=== PATIENT | male | born 1945 | race Two or more races ===

== ENCOUNTER 2016-07-10 18:52 | Inpatient (IN) | payer OTHER ==
[~2016-07-10] VITALS: Ht 180.3 cm; Wt 70.1 kg
[2016-07-10 19:58] LABS: Basophils # (auto) 0 uL; Basophils % (auto) 0.4 % (0.0-2.0); Eosinophils # (auto) 0.1 uL; Eosinophils % (auto) 1.1 % (0.0-7.0); Hematocrit 40.2 % (41.0-53.0); Hemoglobin 13.5 g/dL (13.5-17.5); Lymphocytes # (auto) 2.2 uL; Lymphocytes % (auto) 22.8 % (10.0-50.0); Mean Corpuscular Hemoglobin 32.5 pg (28.0-32.0); Mean Corpuscular Hgb Conc. 33.7 g/dL (32.0-36.0); Mean Corpuscular Volume 96.6 fL (80.0-100.0); Mean Platelet Volume 9.6 fL (7.4-10.4); Monocytes # (auto) 0.5 uL; Monocytes % (auto) 5.7 % (0.0-12.0); Neutrophils # (auto) 6.6 uL; Platelet Count (auto) 186 10^3/uL (140-450); Red Cell Distribution Width 13.9 % (11.6-16.0); White Blood Cell 9.4 10^3/uL (4.4-10.8)
[2016-07-10 20:31] LABS: Albumin 3.4 g/dL (3.4-5.0); BUN/Creatinine Ratio 13.5; Bilirubin, Total 0.2 mg/dL (0.2-1.0); Calcium 7.9 mg/dL (8.5-10.1); Potassium 3.4 mmol/L (3.5-5.1)
[2016-07-10] MEDS ORDERED: BANANA BAG KIT 1 EA IV ONE (21:38)
[2016-07-10] MEDS ORDERED: TETANUS-DIPTH-ACEL PERTUSSIS 0.5ML SYRG IM ONE (21:45)
[2016-07-10] MEDS ORDERED: THIAMINE INJ 100 MG, MULTIPLE VITAMIN 10 ML, FOLIC ACID 1 MG, MAGNESIUM SULF SDV 50% 8 ... IV ONE ×5 (21:45)
[2016-07-10] MEDS ORDERED: IOHEXOL 300 MG/ML 100ML BOTTLE IJ ONE (22:50)
[2016-07-10] MEDS ORDERED: PANTOPRAZOLE SODIUM 40 MG/10 ML VIAL IV ONE (23:30)
[2016-07-10] MEDS ORDERED: LORazepam 0.5 MG TAB PO PRN (23:30)
[2016-07-10] MEDS ORDERED: LACTULOSE 20Gm/30ML SOLN PO PRN (23:30)
[2016-07-10] MEDS: SODIUM CHLORIDE 0.9% 1,000 ML IV ONE (23:30)
[2016-07-10] MEDS ORDERED: cefTRIAXone 1GM/50ML D5W 50 ML IV ONE (23:30)
[2016-07-10] MEDS ORDERED: MORPHINE SULF INJ 2 MG/ML SYRINGE 1ML IV PRN (23:30)
[2016-07-10] MEDS ORDERED: HYDROcodone-ACET 5/325MG TAB PO PRN (23:30)
[2016-07-10] MEDS ORDERED: NITROGLYCERIN 0.4 MG SL TAB SL PRN (23:30)
[2016-07-10] MEDS ORDERED: SODIUM CHLORIDE 0.9% 1,000 ML IV ONE (23:30)
[2016-07-11 00:10] VITALS: BP 124/70
[2016-07-11] MEDS: SODIUM CHLORIDE 0.9% 1,000 ML IV ONE (04:20)
[2016-07-11 05:00] VITALS: BP 114/64
[2016-07-11 06:22] LABS: Basophils # (auto) 0 uL; Basophils % (auto) 0.4 % (0.0-2.0); Eosinophils # (auto) 0.1 uL; Eosinophils % (auto) 1.1 % (0.0-7.0); Hematocrit 37.8 % (41.0-53.0); Hemoglobin 12.6 g/dL (13.5-17.5); Lymphocytes # (auto) 2.1 uL; Lymphocytes % (auto) 25.3 % (10.0-50.0); Mean Corpuscular Hemoglobin 32.3 pg (28.0-32.0); Mean Corpuscular Hgb Conc. 33.3 g/dL (32.0-36.0); Mean Corpuscular Volume 96.9 fL (80.0-100.0); Mean Platelet Volume 9.6 fL (7.4-10.4); Monocytes # (auto) 0.6 uL; Monocytes % (auto) 7.1 % (0.0-12.0); Neutrophils # (auto) 5.5 uL; Neutrophils % (auto) 66.1 % (37.0-80.0); Platelet Count (auto) 169 10^3/uL (140-450); Red Cell Distribution Width 13.8 % (11.6-16.0); White Blood Cell 8.4 10^3/uL (4.4-10.8)
[2016-07-11 06:58] LABS: Albumin 2.9 g/dL (3.4-5.0); BUN/Creatinine Ratio 15.2; Bilirubin, Total 0.3 mg/dL (0.2-1.0); Calcium 7.8 mg/dL (8.5-10.1); Total Protein 6.2 g/dL (6.4-8.2)
[2016-07-11 09:02] VITALS: BP 120/70
[2016-07-11] MEDS ORDERED: PANTOPRAZOLE SODIUM 40 MG/10 ML VIAL IV SCH (10:00)
[2016-07-11] MEDS ORDERED: ENOXAPARIN SOD 30 MG/0.3 ML SYRINGE SC SCH (10:00)
[2016-07-11] MEDS ORDERED: PNEUMOCOCCAL VACC POLYS 25 MCG/0.5 ML VIAL IM ONE (10:00)
[2016-07-11] MEDS ORDERED: FINASTERIDE 5 MG TAB PO SCH (10:00)
[2016-07-11] MEDS ORDERED: ENOXAPARIN SOD 40 MG/0.4 ML SYRINGE SC SCH (10:00)
[2016-07-11 10:42] VITALS: BP 114/64
[2016-07-11] MEDS ORDERED: TAMSULOSIN HYDROCHLORIDE 0.4 MG CAP PO SCH (18:00)
[2016-07-12] MEDS ORDERED: cefTRIAXone 1GM/50ML D5W 50 ML IV SCH (22:00)
== END 2016-07-11 11:25 | disposition home or self-care (01) | DRG 897 ==
LOC: ER 18:57 → TELE-WESTW 18:58
PROVIDERS: ADMIT Family Medicine; ATTEND Internal Medicine Geriatric Medicine
DX: F10.229 Alcohol dependence with intoxication, unspecified (principal); N17.9 Acute kidney failure, unspecified; E86.0 Dehydration; N40.0 Benign prostatic hyperplasia without lower urinary tract symptoms; F03.90 Unspecified dementia, unspecified severity, without behavioral disturbance, psychotic disturbance, mood disturbance, and anxiety; I10 Essential (primary) hypertension; J84.10 Pulmonary fibrosis, unspecified; S00.31XA Abrasion of nose, initial encounter; X58.XXXA Exposure to other specified factors, initial encounter; Y90.6 Blood alcohol level of 120-199 mg/100 ml; Y93.89 Activity, other specified; Y92.89 Other specified places as the place of occurrence of the external cause; Z23 Encounter for immunization; Z82.49 Family history of ischemic heart disease and other diseases of the circulatory system
CPT/HCPCS: 36415; 70450; 71010; 71260; 80053; 80061; 80320; 84484; 85025; 85049; 90471; 90715; 96365; 96375; C9113; J0696

== ENCOUNTER 2021-07-19 11:01 | Inpatient (IN) | payer OTHER ==
[~2021-07-19] VITALS: Ht 170.2 cm; Wt 75.9 kg
[2021-07-19] MEDS ORDERED: ASPI81CH59 PO (12:06)
[2021-07-19] MEDS ORDERED: WARF2TAB49 PO (12:06)
[2021-07-19] MEDS ORDERED: CHOL20007 PO (12:06)
[2021-07-19] MEDS ORDERED: FINA5TAB4 PO (12:06)
[2021-07-19] MEDS ORDERED: LORA-622 PO (12:06)
[2021-07-19] MEDS ORDERED: POLY33504 PO (12:06)
[2021-07-19] MEDS ORDERED: UMEC1AER IN (12:06)
[2021-07-19] MEDS ORDERED: ATOR10TA52 PO (12:06)
[2021-07-19] MEDS ORDERED: GABA100C9 PO (12:06)
[2021-07-19] MEDS ORDERED: TERA2CAP45 PO (12:06)
[2021-07-19] MEDS ORDERED: FLUT1AER3 IN (12:06)
[2021-07-19 12:43] LABS: Basophils # (auto) 0 10 ^3/uL (0-0.2); Basophils % (auto) 0.1 % (0.0-2.0); Eosinophils # (auto) 0 10 ^3/uL (0-0.8); Hematocrit 30.2 % (41.0-53.0); Hemoglobin 10.4 g/dL (13.5-17.5); Lymphocytes # (auto) 0.5 10 ^3/uL (0.4-5.4); Lymphocytes % (auto) 2.6 % (10.0-50.0); Mean Corpuscular Hemoglobin 32.9 pg (28.0-32.0); Mean Corpuscular Hgb Conc. 34.4 g/dL (32.0-36.0); Mean Corpuscular Volume 95.7 fL (80.0-100.0); Monocytes # (auto) 1.3 10 ^3/uL (0-1.3); Monocytes % (auto) 6.3 % (0.0-12.0); Neutrophils # (auto) 18.2 10 ^3/uL (1.6-8.6); Red Blood Cells 3.15 10^6/uL (4.5-5.90); Red Cell Distribution Width 13.9 % (11.8-14.3)
[2021-07-19 12:59] LABS: Albumin 2.2 g/dL (3.4-5.0); BUN/Creatinine Ratio 14.2; Calcium 7.5 mg/dL (8.5-10.1)
[2021-07-19] MEDS ORDERED: AZITHROMYCIN 500MG/ 250ML 250 ML IV ONE (13:00)
[2021-07-19] MEDS ORDERED: cefTRIAXone 1GM/50ML D5W 50 ML IV ONE (13:00)
[2021-07-19 13:02] LABS: Bilirubin, Total 1.3 mg/dL (0.2-1.0)
[2021-07-19 14:47] LABS: Urine WBC None Seen /hpf (0 - 3)
[2021-07-19 15:06] LABS: Urine Bacteria FEW /hpf (None Seen); Urine Blood 3+ /uL (Negative); Urine Specific Gravity 1.009 (1.001-1.035)
[2021-07-19] MEDS ORDERED: ONDANSETRON HCL 4 MG/2 ML VIAL IV PRN (15:30)
[2021-07-19] MEDS ORDERED: ACETAMINOPHEN 500 MG TAB PO PRN (15:30)
[2021-07-19] MEDS ORDERED: DOCUSATE SOD 100 MG CAP PO PRN (15:30)
[2021-07-19] MEDS ORDERED: ACETAMINOPHEN 325 MG TAB PO PRN (15:30)
[2021-07-19] MEDS ORDERED: DEXTROSE (50%) 50ML SYRG IV PRN (15:30)
[2021-07-19] MEDS ORDERED: NITROGLYCERIN 0.4 MG SL TAB SL PRN (15:30)
[2021-07-19] MEDS ORDERED: MORPHINE SULFATE INJECTION 2 MG/ML SYRG IV PRN ×2 (15:30)
[2021-07-19] MEDS ORDERED: REMDESIVIR PER PHARMACY 0 ML IV SCH (15:30)
[2021-07-19] MEDS ORDERED: HYDROcodone-ACET 5/325MG TAB PO PRN (15:30)
[2021-07-19] MEDS ORDERED: ALUM & MAG HYDROX-SIMETH LIQ(MAALOX) 30 ML PO PRN (15:30)
[2021-07-19 16:09] LABS: Cholesterol < 50 mg/dL (< 200); HDL Cholesterol 8 mg/dL (40-59); LDL Cholesterol 19 mg/dL (< 100); Triglycerides 68 mg/dL (< 150)
[2021-07-19 16:23] LABS: Thyroid Stimulating Hormone 0.47 uIU/mL (0.358-3.74)
[2021-07-19] MEDS ORDERED: REMDESIVIR 200 MG in NS 210ml LOADING DOSE ADULT IV ONE (17:00)
[2021-07-19] MEDS ORDERED: IOHEXOL 300 MG/ML 100ML BOTTLE IJ ONE (17:10)
[2021-07-19] MEDS: InsuLIN REG 1unit/0.01ml Soln (100units/ml) SC SCH ×2 (18:00→23:40)
[2021-07-19] MEDS: ACCU-CHEK COMFORT CURVE STRIP VI SCH ×2 (18:00→23:40)
[2021-07-19 18:28] VITALS: BP 101/63
[2021-07-19 19:40] LABS: Albumin 2.3 g/dL (3.4-5.0); Calcium 7.5 mg/dL (8.5-10.1); Lactic Acid w/Reflex 2.4 mmol/L (0.4-2.0); Magnesium 3.1 mg/dL (1.6-2.6); Potassium 3.9 mmol/L (3.5-5.1)
[2021-07-19 19:57] LABS: BUN/Creatinine Ratio 15.7; Bilirubin, Total 1.1 mg/dL (0.2-1.0); CRP High Sensitivity 17.3 mg/dL (< 0.3); Total Protein 6.2 g/dL (6.4-8.2)
[2021-07-19 20:00] VITALS: BP 118/66
[2021-07-19] MEDS: BUDESONIDE (INHALATION) 180 MCG IH IN SCH (20:43)
[2021-07-19] MEDS: ENOXAPARIN SOD 40 MG/0.4 ML SYRINGE SC SCH (21:56)
[2021-07-19 22:00] VITALS: BP 118/66
[2021-07-19] MEDS ORDERED: FAMOTIDINE 20 MG TAB PO SCH (22:00)
[2021-07-20 05:00] VITALS: BP 102/62
[2021-07-20] MEDS: InsuLIN REG 1unit/0.01ml Soln (100units/ml) SC SCH ×2 (06:00→11:53)
[2021-07-20] MEDS: ACCU-CHEK COMFORT CURVE STRIP VI SCH ×2 (06:44→11:52)
[2021-07-20 07:04] LABS: Basophils # (auto) 0 10 ^3/uL (0-0.2); Basophils % (auto) 0.1 % (0.0-2.0); Eosinophils # (auto) 0 10 ^3/uL (0-0.8); Eosinophils % (auto) 0.1 % (0.0-7.0); Hematocrit 33.9 % (41.0-53.0); Hemoglobin 11.8 g/dL (13.5-17.5); Mean Corpuscular Hemoglobin 33.3 pg (28.0-32.0); Mean Corpuscular Hgb Conc. 34.7 g/dL (32.0-36.0); Mean Corpuscular Volume 95.9 fL (80.0-100.0); Monocytes # (auto) 1.3 10 ^3/uL (0-1.3); Neutrophils # (auto) 16.6 10 ^3/uL (1.6-8.6); Neutrophils % (auto) 87.8 % (37.0-80.0); Red Blood Cells 3.53 10^6/uL (4.5-5.90); Red Cell Distribution Width 13.8 % (11.8-14.3); White Blood Cell 18.9 10^3/uL (4.4-10.8)
[2021-07-20 07:09] LABS: Potassium 4.4 mmol/L (3.5-5.1)
[2021-07-20 07:11] LABS: Albumin 2.2 g/dL (3.4-5.0); Calcium 7.9 mg/dL (8.5-10.1)
[2021-07-20 07:29] LABS: Bilirubin, Total 1.3 mg/dL (0.2-1.0); Total Protein 5.8 g/dL (6.4-8.2)
[2021-07-20] MEDS ORDERED: IOHEXOL 300 MG/ML 100ML BOTTLE IJ ONE (08:15)
[2021-07-20 09:00] VITALS: BP 112/61
[2021-07-20] MEDS: cefTRIAXone 1GM/50ML D5W 50 ML IV SCH (09:38)
[2021-07-20] MEDS: ASCORBIC ACID 1,000 MG TAB PO SCH (09:39)
[2021-07-20] MEDS: DexAMETHasone SOD PHOS 10MG/1ML VIAL INJ IV SCH (09:41)
[2021-07-20] MEDS: CHOLECALCIFEROL (VITD3) 2,000 UNIT CAP/TAB PO SCH (09:41)
[2021-07-20] MEDS: FUROSEMIDE 40 MG/4 ML VIAL IV SCH (09:42)
[2021-07-20] MEDS: ZINC SULFATE 220mg CAP or TAB PO SCH (09:42)
[2021-07-20] MEDS ORDERED: FAMOTIDINE 20 MG TAB PO SCH (10:00)
[2021-07-20] MEDS: ENOXAPARIN SOD 40 MG/0.4 ML SYRINGE SC SCH (10:00)
[2021-07-20] MEDS ORDERED: AZITHROMYCIN 500MG/ 250ML 250 ML IV SCH (10:00)
[2021-07-20 13:00] VITALS: BP 98/60
[2021-07-20] MEDS: REMDESIVIR 100mg 100 MG in SODIUM CHL 0.9% 230 ML IV SCH (15:56)
[2021-07-20 17:00] VITALS: BP 106/61
[2021-07-20] MEDS ORDERED: THROAT LOZENGES(CEPASTAT) MT ONE (18:00)
[2021-07-20] MEDS: SODIUM CHLORIDE 0.9% 1,000 ML IV SCH (18:06)
[2021-07-20] MEDS: BUDESONIDE (INHALATION) 180 MCG IH IN SCH (19:38)
[2021-07-20] MEDS: ALBUTEROL SULF HFA 90MCG INH 200DOSE IN PRN (19:38)
[2021-07-20] MEDS: DOXYCYCLINE 100 MG TAB/CAP PO SCH (21:36)
[2021-07-20] MEDS: FAMOTIDINE 20 MG TAB PO SCH (21:37)
[2021-07-20 22:00] VITALS: BP 85/43
[2021-07-21 06:00] VITALS: BP 98/60
[2021-07-21 06:04] LABS: Basophils # (auto) 0 10 ^3/uL (0-0.2); Basophils % (auto) 0.1 % (0.0-2.0); Eosinophils # (auto) 0 10 ^3/uL (0-0.8); Hematocrit 32.4 % (41.0-53.0); Hemoglobin 11.3 g/dL (13.5-17.5); Lymphocytes # (auto) 0.6 10 ^3/uL (0.4-5.4); Lymphocytes % (auto) 4.3 % (10.0-50.0); Mean Corpuscular Hemoglobin 33.2 pg (28.0-32.0); Monocytes # (auto) 0.5 10 ^3/uL (0-1.3); Monocytes % (auto) 3.8 % (0.0-12.0); Neutrophils # (auto) 12.4 10 ^3/uL (1.6-8.6); Neutrophils % (auto) 91.8 % (37.0-80.0); Red Blood Cells 3.41 10^6/uL (4.5-5.90); Red Cell Distribution Width 13.8 % (11.8-14.3); White Blood Cell 13.5 10^3/uL (4.4-10.8)
[2021-07-21 06:15] LABS: Albumin 1.8 g/dL (3.4-5.0); Calcium 7.8 mg/dL (8.5-10.1); Potassium 4.2 mmol/L (3.5-5.1)
[2021-07-21 06:18] LABS: Bilirubin, Total 0.9 mg/dL (0.2-1.0); Total Protein 5.4 g/dL (6.4-8.2)
[2021-07-21] MEDS: BUDESONIDE (INHALATION) 180 MCG IH IN SCH ×2 (06:55→22:01)
[2021-07-21] MEDS: ALBUTEROL SULF HFA 90MCG INH 200DOSE IN PRN ×2 (08:11→22:01)
[2021-07-21 09:00] VITALS: BP 91/53
[2021-07-21] MEDS: cefTRIAXone 1GM/50ML D5W 50 ML IV SCH (09:35)
[2021-07-21] MEDS: FUROSEMIDE 40 MG/4 ML VIAL IV SCH (09:35)
[2021-07-21] MEDS: DexAMETHasone SOD PHOS 10MG/1ML VIAL INJ IV SCH (09:35)
[2021-07-21] MEDS: FAMOTIDINE 20 MG TAB PO SCH ×2 (09:36→22:07)
[2021-07-21] MEDS: DOXYCYCLINE 100 MG TAB/CAP PO SCH ×2 (09:36→22:07)
[2021-07-21] MEDS: ZINC SULFATE 220mg CAP or TAB PO SCH (09:36)
[2021-07-21] MEDS: ASCORBIC ACID 1,000 MG TAB PO SCH (09:36)
[2021-07-21] MEDS: CHOLECALCIFEROL (VITD3) 2,000 UNIT CAP/TAB PO SCH (09:37)
[2021-07-21] MEDS: SODIUM CHLORIDE 0.9% 1,000 ML IV SCH (09:50)
[2021-07-21 13:00] VITALS: BP 109/58
[2021-07-21] MEDS: REMDESIVIR 100mg 100 MG in SODIUM CHL 0.9% 230 ML IV SCH (15:06)
[2021-07-21 17:00] VITALS: BP 104/56
[2021-07-21 22:00] VITALS: BP 91/53
[2021-07-22 05:00] VITALS: BP 96/55
[2021-07-22] MEDS: SODIUM CHLORIDE 0.9% 1,000 ML IV SCH (05:28)
[2021-07-22 06:15] LABS: Basophils # (auto) 0 10 ^3/uL (0-0.2); Basophils % (auto) 0.1 % (0.0-2.0); Eosinophils # (auto) 0 10 ^3/uL (0-0.8); Hematocrit 31.3 % (41.0-53.0); Hemoglobin 10.6 g/dL (13.5-17.5); Lymphocytes # (auto) 0.5 10 ^3/uL (0.4-5.4); Lymphocytes % (auto) 3.8 % (10.0-50.0); Mean Corpuscular Hemoglobin 32.7 pg (28.0-32.0); Mean Corpuscular Hgb Conc. 33.8 g/dL (32.0-36.0); Mean Corpuscular Volume 96.6 fL (80.0-100.0); Monocytes # (auto) 0.5 10 ^3/uL (0-1.3); Monocytes % (auto) 3.9 % (0.0-12.0); Neutrophils # (auto) 12.9 10 ^3/uL (1.6-8.6); Neutrophils % (auto) 92.2 % (37.0-80.0); Red Blood Cells 3.24 10^6/uL (4.5-5.90); Red Cell Distribution Width 13.9 % (11.8-14.3); White Blood Cell 13.9 10^3/uL (4.4-10.8)
[2021-07-22 06:39] LABS: Albumin 1.9 g/dL (3.4-5.0); BUN/Creatinine Ratio 31.6; Calcium 7.8 mg/dL (8.5-10.1); Potassium 4.1 mmol/L (3.5-5.1)
[2021-07-22 06:41] LABS: Bilirubin, Total 0.8 mg/dL (0.2-1.0); Total Protein 5.2 g/dL (6.4-8.2)
[2021-07-22] MEDS: ALBUTEROL SULF HFA 90MCG INH 200DOSE IN PRN (07:55)
[2021-07-22] MEDS: BUDESONIDE (INHALATION) 180 MCG IH IN SCH (07:55)
[2021-07-22 08:00] VITALS: BP 91/52
[2021-07-22 08:36] VITALS: BP 91/52
[2021-07-22] MEDS: FUROSEMIDE 40 MG/4 ML VIAL IV SCH (10:00)
[2021-07-22] MEDS: DexAMETHasone SOD PHOS 10MG/1ML VIAL INJ IV SCH (10:01)
[2021-07-22] MEDS: cefTRIAXone 1GM/50ML D5W 50 ML IV SCH (10:02)
[2021-07-22] MEDS: DOXYCYCLINE 100 MG TAB/CAP PO SCH (10:03)
[2021-07-22] MEDS: ZINC SULFATE 220mg CAP or TAB PO SCH (10:03)
[2021-07-22] MEDS: FAMOTIDINE 20 MG TAB PO SCH (10:03)
[2021-07-22] MEDS: CHOLECALCIFEROL (VITD3) 2,000 UNIT CAP/TAB PO SCH (10:04)
[2021-07-22] MEDS: ASCORBIC ACID 1,000 MG TAB PO SCH (10:04)
[2021-07-22] MEDS ORDERED: CHOL20007 OR (15:10)
[2021-07-22] MEDS ORDERED: BIOF500C2 PO (15:10)
[2021-07-22] MEDS ORDERED: DEXA6TAB PO (15:11)
[2021-07-22] MEDS ORDERED: DOXY-286 PO (15:11)
[2021-07-22] MEDS ORDERED: ZINC220C10 PO (15:11)
[2021-07-22] MEDS: REMDESIVIR 100mg 100 MG in SODIUM CHL 0.9% 230 ML IV SCH (15:49)
[2021-07-22 17:04] VITALS: BP 91/52
== END 2021-07-22 18:37 | disposition home or self-care (01) | DRG 871 ==
LOC: EDBD 11:01 → ER 11:01 → TELE 15:26 → TELE-WESTW 17:31
PROVIDERS: ADMIT Family Medicine; ATTEND Internal Medicine Geriatric Medicine
PROC: XW033E5 Introduction of Remdesivir Anti-infective into Peripheral Vein, Percutaneous Approach, New Technology Group 5 (ICD-10-PCS; principal; 2021-07-19)
DX: A41.89 Other specified sepsis (principal); U07.1 COVID-19; J12.82 Pneumonia due to coronavirus disease 2019; J96.01 Acute respiratory failure with hypoxia; J85.1 Abscess of lung with pneumonia; E46 Unspecified protein-calorie malnutrition; J98.11 Atelectasis; E87.1 Hypo-osmolality and hyponatremia; R04.2 Hemoptysis; Z68.26 Body mass index [BMI] 26.0-26.9, adult; F03.90 Unspecified dementia, unspecified severity, without behavioral disturbance, psychotic disturbance, mood disturbance, and anxiety; R31.9 Hematuria, unspecified; R73.9 Hyperglycemia, unspecified; R74.01 Elevation of levels of liver transaminase levels; I11.0 Hypertensive heart disease with heart failure; J43.9 Emphysema, unspecified; N40.0 Benign prostatic hyperplasia without lower urinary tract symptoms; Z79.82 Long term (current) use of aspirin; Z82.49 Family history of ischemic heart disease and other diseases of the circulatory system; Z86.73 Personal history of transient ischemic attack (TIA), and cerebral infarction without residual deficits; Z87.891 Personal history of nicotine dependence; Z79.899 Other long term (current) drug therapy; Z23 Encounter for immunization
CPT/HCPCS: 36415; 71045; 71260; 76705; 76856; 80053; 80061; 81001; 82306; 82728; 82962; 83036; 83605; 83615; 83735; 83880; 84443; 84484; 85025; 85379; 86141; 87040; 87070; 87077; 87186; 87205; 87426; 93005; 93306; 94640; 96365; 96366; 96367; G0378; J0696; J1100